=== PATIENT | female | born 1955 | race Caucasian/White ===

== ENCOUNTER 2019-07-03 13:38 | Outpatient (CLI) | payer BC ==
[2019-07-03 15:16] LABS: #Eosinphils 0.1 thou/uL (0.0-0.7); #Lymphocytes 1.2 thou/uL (1.20-3.40); #Monocytes 0.8 thou/uL (0.11-0.59); #Neutrophils 4.4 thou/uL (1.40-6.50); %Basophils 0.7 % (0.0-1.0); %Eosinophils 1.7 % (0.0-10.0); %Lymphocytes 18.6 % (21.0-51.0); %Monocytes 11.4 % (0.0-10.0); %Neutrophils 67.5 % (42.0-75.0); Hemoglobin 13.2 g/dL (12.0-16.0); Mean Corpuscular HGB CONC 34.8 g/dL (32.0-36.0); Mean Corpuscular Hemoglobin 33.2 pg (27.0-31.0); Mean Corpuscular Volume 95.7 fL (78.0-98.0); Mean Platelet Volume 6.7 fL (7.4-10.4); Platelet Count 232 thou/uL (130-400); RBC Distribution Width 11.1 % (11.5-14.5); Red Blood Cell (RBC) Count 3.97 mill/uL (4.20-5.40); White Blood Cell (WBC) Count 6.5 thou/uL (4.8-10.8)
[2019-07-03 15:21] LABS: INR-International Normal Ratio 1.1; Prothrombin Time 14.4 SEC (12.0-14.7)
== END 2019-07-03 13:39 | disposition home or self-care (01) ==
LOC: LABBT 13:38
PROVIDERS: ATTEND Orthopaedic Surgery
DX: Z01.812 Encounter for preprocedural laboratory examination (principal); G56.01 Carpal tunnel syndrome, right upper limb; M25.511 Pain in right shoulder
CPT/HCPCS: 85025; 85610

== ENCOUNTER 2019-07-10 08:25 | Day surgery (SDC) | payer BC ==
[2019-07-03 14:01] VITALS: BMI 23.5
[2019-07-10] MEDS ORDERED: Fentanyl 100 MCG/2 ML VIAL ONE (09:46)
[2019-07-10] MEDS ORDERED: methylPREDNISolone Acetate 40 mg/ml Vial ONE (10:04)
[2019-07-10] MEDS ORDERED: Lidocaine 1% (PF) 30 ML VIAL ONE (10:04)
--- NOTE | 2019-07-10 17:26 | OP ---
DATE OF PROCEDURE: 07/10/2019 PREOPERATIVE DIAGNOSES: Right carpal tunnel syndrome and right shoulder impingement. POSTOPERATIVE DIAGNOSES: Right carpal tunnel syndrome and right shoulder impingement. PROCEDURES PERFORMED: 1. Right open carpal tunnel release. 2. Right shoulder subacromial steroid injection. 3. Placement of short-arm volar splint, right upper extremity. NURSE HEAD: None. BLOOD LOSS: Minimal. COMPLICATIONS: None. ANESTHESIA: The patient had TIVA with local. DISPOSITION: She did go back to [facility] in stable condition. INDICATIONS: A 64-year-old female with significant numbness and tingling in both her hands and at this time, she is presenting for right open carpal tunnel release and a right shoulder injection for impingement syndrome. DESCRIPTION OF PROCEDURE: After all appropriate consent forms were explained and signed, she was taken back to the operating room and at this time was given some IV sedation. The right subacromial area was just cleaned off with alcohol, and the right subacromial space was localized and injected with 5 mL of local and 80 mg of Depo-Medrol. A Band-Aid was applied. We then placed a tourniquet on the right arm, prepped and draped the right upper extremity in standard surgical fashion. The incision was then drawn out and infiltrated with plain lidocaine. Limb was exsanguinated and tourniquet taken up to 250 mmHg. At this time, using Loupe magnification, a 15 blade was used to incise down through skin. Bipolar cautery was used to coagulate any brisk venous bleeding. We then placed a small hemostat to protect the underlying median nerve and transected the transverse carpal ligament using multiple 15 blades as well as scissors. Once this was done, a small finger was inserted to palpate for any remaining bands. At this time, a moist Ray-Татьяна sponge was placed into the wound. Tourniquet was let down and pressure was held. Bipolar cautery used to coagulate any brisk venous bleeding. The wound was then irrigated with saline solution and we then evaluated the nerve. The nerve was found to be significantly injected, the nerve was intact, there were no masses noted, and the underlying flexor tendons were in good condition. At this time, we irrigated and dried the wound. We then placed multiple nylon stitches to close the incision. A bulky sterile hand dressing and a small volar splint were then placed. The patient was then awakened and taken to recovery in stable condition. All counts were correct at the end of the case. The patient received preoperative IV antibiotics. Job ID: [id number]
== END 2019-07-10 11:55 | disposition home or self-care (01) ==
LOC: SDC 08:25
PROVIDERS: ATTEND Orthopaedic Surgery
PROC: 3E0U3GC Introduction of Other Therapeutic Substance into Joints, Percutaneous Approach (ICD-10-PCS; principal; 2019-07-10)
PROC: 01N50ZZ Release Median Nerve, Open Approach (ICD-10-PCS; principal; 2019-07-10)
DX: G56.01 Carpal tunnel syndrome, right upper limb (principal); M75.41 Impingement syndrome of right shoulder; M19.90 Unspecified osteoarthritis, unspecified site; I10 Essential (primary) hypertension; E78.00 Pure hypercholesterolemia, unspecified; Z79.01 Long term (current) use of anticoagulants; Z79.899 Other long term (current) drug therapy; Z88.5 Allergy status to narcotic agent; Z88.8 Allergy status to other drugs, medicaments and biological substances
CPT/HCPCS: J0690; J1030; J2001; J3010

== ENCOUNTER 2019-12-20 08:21 | Day surgery (SDC) | payer BC ==
[2019-12-19 14:25] VITALS: BMI 24.2
[2019-12-20 08:52] LABS: #Eosinphils 0.1 thou/uL (0.0-0.7); #Lymphocytes 1.1 thou/uL (1.20-3.40); #Monocytes 0.6 thou/uL (0.11-0.59); #Neutrophils 2.7 thou/uL (1.40-6.50); %Basophils 0.7 % (0.0-1.0); %Eosinophils 2.5 % (0.0-10.0); %Lymphocytes 24.3 % (21.0-51.0); %Monocytes 12.4 % (0.0-10.0); %Neutrophils 60.1 % (42.0-75.0); Hemoglobin 13.4 g/dL (12.0-16.0); Mean Corpuscular HGB CONC 34.2 g/dL (32.0-36.0); Mean Corpuscular Hemoglobin 32.4 pg (27.0-31.0); Mean Corpuscular Volume 94.7 fL (78.0-98.0); Mean Platelet Volume 6.5 fL (7.4-10.4); Platelet Count 267 thou/uL (130-400); RBC Distribution Width 11.2 % (11.5-14.5); Red Blood Cell (RBC) Count 4.13 mill/uL (4.20-5.40); White Blood Cell (WBC) Count 4.5 thou/uL (4.8-10.8)
[2019-12-20] MEDS ORDERED: Midazolam HCl 2 mg/2 ml Vial ONE (09:26)
[2019-12-20] MEDS ORDERED: Fentanyl 100 MCG/2 ML VIAL ONE (09:26)
[2019-12-20] MEDS ORDERED: Lidocaine 1% (PF) 30 ML VIAL ONE (10:04)
[2019-12-20] MEDS ORDERED: Lidocaine 1% PF 5 ML VIAL ONE (11:16)
[2019-12-20] MEDS ORDERED: Ondansetron PF 4 MG/2 ML Vial ONE (11:16)
[2019-12-20] MEDS ORDERED: Ketorolac Tromethamine 30 MG/ML VIAL ONE (11:16)
--- NOTE | 2019-12-20 13:35 | OP ---
DATE OF PROCEDURE: 12/20/2019 PREOPERATIVE DIAGNOSIS: Left carpal tunnel syndrome. POSTOPERATIVE DIAGNOSIS: Left carpal tunnel syndrome. PROCEDURES PERFORMED: 1. Left open carpal tunnel release. 2. Placed in a short-arm volar splint, left upper extremity. [employer]: None. ESTIMATED BLOOD LOSS: Minimal. COMPLICATIONS: None. ANESTHESIA: The patient had a TIVA with local. DISPOSITION: Went to recovery room in stable condition. INDICATIONS: This is a 64-year-old female, who had bilateral carpal tunnel syndrome and has had a right side release and done very well with that and at this time, wished to have a left side release. DESCRIPTION OF PROCEDURE: After all appropriate consent forms were explained and signed, the patient was taken back to the operating room and at this time was given IV sedation. A well-padded tourniquet was placed on the left arm and the arm was then prepped and draped in the standard surgical fashion. The incision was then drawn out and infiltrated with plain lidocaine. Limb was exsanguinated and tourniquet taken up to 250 mmHg. At this time, using Loupe magnification, a 15 blade was used to incise down through skin. Bipolar cautery was used to coagulate any brisk venous bleeding. We then placed a small hemostat to protect the underlying median nerve and transected the transverse carpal ligament using multiple 15 blades as well as scissors. Once this was done, a small finger was inserted to palpate for any remaining bands. At this time, a moist Ray-Татьяна sponge was placed into the wound. Tourniquet was let down and pressure was held. Bipolar cautery used to coagulate any brisk venous bleeding. The wound was then irrigated with saline solution and we then evaluated the nerve. The nerve was found to be significantly injected, the nerve was intact, there were no masses noted, and the underlying flexor tendons were in good condition. At this time, we irrigated and dried the wound. We then placed multiple nylon stitches to close the incision. A bulky sterile hand dressing and a small volar splint were then placed. The patient was then awakened and taken to recovery in stable condition. All counts were correct at the end of the case. The patient received preoperative IV antibiotics. Job ID: [id number]
== END 2019-12-20 12:21 | disposition home or self-care (01) ==
LOC: SDC 08:21
PROVIDERS: ATTEND Orthopaedic Surgery
PROC: 01N50ZZ Release Median Nerve, Open Approach (ICD-10-PCS; principal; 2019-12-20)
DX: G56.02 Carpal tunnel syndrome, left upper limb (principal); I10 Essential (primary) hypertension; E78.00 Pure hypercholesterolemia, unspecified; M19.90 Unspecified osteoarthritis, unspecified site; Z88.5 Allergy status to narcotic agent; Z88.6 Allergy status to analgesic agent; Z88.8 Allergy status to other drugs, medicaments and biological substances; Z91.018 Allergy to other foods; Z79.899 Other long term (current) drug therapy; Z79.01 Long term (current) use of anticoagulants
CPT/HCPCS: 36415; 85025; J1885; J2001; J2250; J2405; J3010